=== PATIENT | male | born 1985 | race Caucasian/White ===

== ENCOUNTER 2018-06-20 08:11 | Emergency (ER) | payer OTHER, SELFPAY ==
[2018-06-20 08:11] VITALS: BP 174/105; PULSE 106; RESP 20; TEMP 36.8; O2SAT 99
--- NOTE | 2018-06-20 08:35 | DI.RAD.S_ITS ---
PROCEDURE: XR FOOT RT MIN 3V INDICATIONS: felt pop in foot, pain with weight bearing TECHNIQUE: 3 views of the foot were acquired. COMPARISON: None. FINDINGS: Bones: No fractures or dislocations. No suspicious bony lesions. Soft tissues: No tibiotalar joint effusion. Achilles tendon appears normal. IMPRESSION: No trauma found. Please note that plain film imaging generally would not detect ligamentous injury. MR scanning would provide accurate assessment for such injury. Dictated by: Jovanni Blue M.D. on 06/20/2018 at 8:57 Approved by: Jovanni Blue M.D. on 06/20/2018 at 9:03
--- NOTE | 2018-06-20 09:25 | ED.LOWEXIN ---
HPI - Extremity Injury (Lower) General Chief Complaint: Extremity Injury, Lower Stated Complaint: RT FOOT PAIN Time Seen by Provider: 06/20/18 08:17 Source: patient Mode of arrival: ambulatory Limitations: no limitations History of Present Illness HPI Narrative: Patient presents with chief complaint of right foot pain after walking up some stairs when he felt and heard a pop. He denies any numbness, tingling weakness. He denies any significant swelling. He is able to ambulate but states it hurts worse when he walks Related Data Allergies Allergy/AdvReac Type Severity Reaction Status Date / Time No Known Drug Allergies Allergy Verified 06/20/18 08:40 Review of Systems Review of Systems All systems reviewed & are unremarkable except as noted in HPI and below Constitutional Denies chills, Denies fever(s), Denies lethargy and Denies weakness Eyes Denies change in vision, Denies eye discharge, Denies irritation and Denies loss of vision ENT Ears, Nose, Mouth, and Throat: Denies change in voice, Denies neck pain and Denies sore throat Cardiovascular Denies chest pain, Denies irregular heart rhythm, Denies lightheadedness, Denies palpitations, Denies dyspnea, Denies dyspnea on exertion and Denies orthopnea Respiratory Denies cough, Denies dyspnea, Denies dyspnea on exertion and Denies wheezing Gastrointestinal Gastrointestinal: Denies abdominal pain, Denies change in bowel habits, Denies diarrhea, Denies nausea and Denies vomiting Genitourinary Denies hematuria, Denies flank pain, Denies urinary incontinence and Denies urinary urgency Musculoskeletal Reports joint swelling, Reports limited range of motion and Denies neck pain Integumentary/Breasts Denies pruritus, Denies erythema, Denies rash and Denies wounds Neurologic Denies confusion, Denies loss of vision and Denies weakness Psychiatric Denies anxiety, Denies confusion, Denies depression, Denies homicidal ideation and Denies suicidal ideation Endocrine Denies palpitations Hematologic/Lymphatic Denies easy bruising Allergic/Immunologic Denies wheezing PFSH Social History Smoking Status: Never smoker Exam Narrative Exam Narrative: GEN: AOx3 and in mild distress EYES: Pupils are equal, round, and reactive to light and accommodation. Extraoccular muscles are intact bilaterally. There is no subconjunctival hemorrhage or exudate. CHEST: Lungs are clear to auscultation bilaterally and free of wheezes, rales, or rhonchi. Heart rate is regular rhythm, there are no murmurs, clicks, rubs, or gallops. There is no chest wall tenderness. ABD: Abdomen is soft and nontender. There is no guarding or rebound. Bowel sounds are normal in all 4 quadrants. There is no mass or organomegaly. EXT: F mild pain to palpation on dorsum of right foot. No obvious deformity, swelling. Isolated, neurovascularly intact injury SKIN: Warm, pink, and dry. No erythema or rash Initial Vital Signs Initial Vital Signs: Vital Signs Temperature 98.2 F 06/20/18 08:11 Pulse Rate 106 H 06/20/18 08:11 Respiratory Rate 20 06/20/18 08:11 Blood Pressure 174/105 H 06/20/18 08:11 Pulse Oximetry 99 06/20/18 08:11 Course Orders Ordered: ED Orders 06/20/18 08:35 XR foot RT min 3V Stat Vital Signs - 8 hr 06/20/18 10:13 Pulse Rate 110 H Respiratory Rate 20 Blood Pressure 156/100 H Pulse Oximetry 98 MDM - Extremity Injury (Lower) Imaging Data Foot Xray: Radiologist's impression: PROCEDURE: XR FOOT RT MIN 3V INDICATIONS: felt pop in foot, pain with weight bearing TECHNIQUE: 3 views of the foot were acquired. COMPARISON: None. FINDINGS: Bones: No fractures or dislocations. No suspicious bony lesions. Soft tissues: No tibiotalar joint effusion. Achilles tendon appears normal. IMPRESSION: No trauma found. Please note that plain film imaging generally would not detect ligamentous injury. MR scanning would provide accurate assessment for such injury. Dictated by: Jovanni Blue M.D. on 06/20/2018 at 8:57 Approved by: Jovanni Blue M.D. on 06/20/2018 at 9:03 Discharge Plan Departure Patient Disposition: Home Clinical Impression: Right foot sprain Discharge Date/Time: 06/20/18 10:12 Interventions: ED Discharge Assessment Last Done: 06/20/18 10:13 Instructions: DI for Foot Sprain Activity Restrictions/Additional Instructions: *You have been diagnosed with [acute right foot sprain ] *What to do: *Take medications as directed: [id number] Tylenol and Motrin *Follow up with your primary care provider in 2-3 days, call for an appointment. Let them know you were seen in the Emergency Department and that we ask that you be seen in follow up *Return to ER if you should have any new, worsening or concerning symptoms
[2018-06-20 10:13] VITALS: BP 156/100; PULSE 110; RESP 20; O2SAT 98
== END 2018-06-20 10:12 | disposition home or self-care (01) ==
PROVIDERS: Emergency Provider Emergency Medicine
DX: S93.601A Unspecified sprain of right foot, initial encounter (principal); Y93.01 Activity, walking, marching and hiking
CPT/HCPCS: 73630; 99282; 99283

== ENCOUNTER 2018-07-20 11:52 | Emergency (ER) | payer OTHER, SELFPAY ==
[2018-07-20 12:04] VITALS: BP 160/101; PULSE 113; RESP 24; TEMP 36.6; O2SAT 99; BMI 34.2
--- NOTE | 2018-07-20 12:18 | ED.ALCOHOL ---
HPI - Alcohol General Chief Complaint: Toxicology Problem Stated Complaint: GOUT RT FOOT,BRUISING EVERYWHERE Time Seen by Provider: 07/20/18 12:18 Source: patient Mode of arrival: ambulatory Limitations: no limitations History of Present Illness HPI narrative: this a 32-year-old male comes to the emergency department complaint of bruising everywhere. Patient states that he has been drinking excessively. He has been drinking about a L of hard alcohol daily. He states that he stops drinking Sunday morning and Sunday night had what was described to him as a seizure. He was found on the floor shaking and banging into things. He states that afterwards the people with him said he was very aggressive. This was on [place]. He [place] Ts were present he was not seen at this hospital at that time. He has continued to notice more and more bruising on his, on his arm on his chest and back and lower extremities. He noticed that his right great toenail as seems to be raised up pushed off to the side. He does have a history of elevated liver enzymes and was told to follow up but never did. This was when he was living in [place] at least several months to a year ago. He states he also has a history of high blood pressure but does not take any medication for it. He has had withdrawal symptoms in the past and college around the age of 27 but has never had prior seizures with alcohol withdrawal. He states he occasionally uses marijuana but denies other illicit. Chronic alcohol use: Yes Recent trauma: Yes Related Data Previous Rx's Medication Instructions Recorded chlordiazepoxide HCl 20 mg PO Q8H PRN #12 cap 07/20/18 Allergies Allergy/AdvReac Type Severity Reaction Status Date / Time No Known Drug Allergies Allergy Verified 07/20/18 12:13 Review of Systems Review of Systems All systems reviewed & are unremarkable except as noted in HPI and below PFSH Medical History HTN (hypertension) (Acute) Social History Smoking Status: Never smoker Exam Initial Vital Signs Initial Vital Signs: Vital Signs Temperature 97.8 F 07/20/18 12:04 Pulse Rate 113 H 07/20/18 12:04 Respiratory Rate 24 07/20/18 12:04 Blood Pressure 160/101 H 07/20/18 12:04 Pulse Oximetry 99 07/20/18 12:04 Const General: cooperative and well developed Nutritional Appearance: well nourished and obese Orientation: alert, awake, oriented x3 and not confused [facility] Head: normocephalic, abrasion, No Coy's sign and contusion ( Patient has bruising over the right forehead brow with a small abrasion. patient also has a small bruise on the inner orbit of the right eye) Ears: hearing grossly normal bilaterally, external ears normal and TM's normal bilaterally Nose: external nose normal, nares normal and nasal mucous membranes and turbinates normal Face and sinus: normal facial exam ( Except as above), sinuses tender and face symmetric Mouth: oral mucosae normal, lip normal and tongue normal Teeth and gingiva: dentition normal Throat: posterior oropharynx normal, tonsils normal and uvula midline Eyes General: appearance normal, both eyes and all related structures Eyelids: eyelids normal Conjunctivae: conjunctivae normal Sclera: sclerae normal Pupils: PERRL EOM: EOM intact bilaterally Neck Neck: normal visual inspection, trachea midline, No lymphadenopathy, No midline deformity, No tender and No JVD Lymphatic: No lymphedema Chest Chest: normal inspection of the chest Resp Effort & Inspection: normal respiratory effort, able to speak in complete sentences, no respiratory distress and no use of accessory muscles Auscultation: clear to auscultation bilaterally, no rales, no rhonchi and no wheezes Cardio Rate: regular rate Rhythm: regular rhythm Heart Sounds: no click, no gallops, no murmurs and no rubs Pulses: normal peripheral pulses GI Inspection: abdominal wall ecchymosis ( patient has a a 4 cm hematoma / ecchymosis of the right upper quadrant.) and non-distended Palpation: soft, no hepatosplenomegaly, No guarding, No pulsatile mass and No tender Auscultation: normal bowel sounds General: bimanual renal exam normal bilaterally and No CVA tenderness Back/Spine/Pelvis Back: No CVA tenderness Cervical Spine: cervical ROM normal and No pain with cervical ROM Thoracic/Lumbar Spine: thoracic and lumbar spine normal to inspection Skin General: no rashes or lesions noted, No jaundice and No petechiae Other: Patient has extensive bruising Neuro General: alert, oriented x3, gait normal and no focal motor deficits Cranial Nerves: CN's II-XI intact bilaterally and PERRL Cognition: normal cognition Speech: speech normal Motor: muscle tone normal throughout, strength 5/5 throughout and tremor ( mild generalized tremor) Sensory Exam: no sensory deficits noted Extrem General: full ROM, no clubbing, cyanosis or edema, no pedal edema and no calf tenderness Right upper extremity: full ROM and shoulder/upper arm Details: abnormal to inspection ( Patient has bruising of the right upper arm) Details: no obvious dislocation, no A-C step-off, no clavicle deformity and no loss of deltoid contour and normal ROM; no tenderness ( mild tenderness) and no swelling Right lower extremity: full ROM, normal capillary refill, ankle ( Right ankle has extensive bruising on the lateral side no bony tenderness.) and foot ( patient has bruising of the right great toe at the nail slightly lifted. Patient also has missing toenails hand or bruising around all other 5 toes in nails.); no edema Left lower extremity: full ROM, normal capillary refill and foot ( Patient has bruising and some toe some loss of toenails on 2 toes.); no edema Procedures Nerve Block Nerve Block 1: Time out performed: Yes Local Anesthetic: lidocaine 1% Amount of anesthesia used (mL): 8 Side: right Nerve Blocks: other (great toe, digital block) [facility] [place] Procedure Name of Procedure: Side (if applicable): right Time out performed: Yes Technique/Description of procedure performed: PROCEDURE: toenail avulsion The area surrounding the skin lesion was prepared and draped in the usual sterile manner. The patient is placed in the supine position. The toe was prepped with povidone-iodine solution. A standard digital block was performed, a [25 guage] needle was inserted. 6] mL of lidocaine without epinephrine and marcaine were injected. A sterile tourniquet was applied for the shortest time possible. Hemostats was slid under the cuticle to separate the nail plate from the overlying proximal nail fold. Patient did have a subungual hematoma which is drained when this occurred. The lateral 20-30% of the nail plate was cut free and gently pulled free with a hemostat. A non-stick dressing was applied followed by a bulky gauze dressing. Followup: The patient tolerated the procedure well without complications. Standard post-procedure care is explained and return precautions are given. Patient tolerated procedure: Well Complications: none Course Orders Ordered: Discontinued Medications Sodium Chloride (Normal Saline 0.9%) 1,000 mls @ 1,000 mls/hr IV BOLUS ONE Stop: 07/20/18 13:18 Last Infusion: 07/20/18 13:52 Dose: 0 mls/hr Admin: 07/20/18 12:35 Dose: 1,000 mls/hr Lorazepam (Ativan) 1 mg IV NOW ONE Stop: 07/20/18 12:31 Last Admin: 07/20/18 12:53 Dose: 1 mg Lorazepam (Ativan) 1 mg IV NOW ONE Stop: 07/20/18 13:51 Last Admin: 07/20/18 13:52 Dose: 1 mg Vital Signs - 8 hr 07/20/18 12:04 07/20/18 12:30 07/20/18 13:32 Temperature 97.8 F Pulse Rate 113 H 99 H Respiratory Rate 24 18 Blood Pressure 160/101 H Blood Pressure [Right Arm] 151/94 H 132/98 H Pulse Oximetry 99 98 07/20/18 14:30 07/20/18 16:05 Temperature 98.2 F Pulse Rate 108 H 107 H Respiratory Rate 15 16 Blood Pressure 146/84 H Blood Pressure [Right Arm] 139/83 Pulse Oximetry 97 MDM - Alcohol Lab Data Attestation: I reviewed the patient's lab results. Result diagrams: 07/20/18 12:10 07/20/18 12:10 Labs: Lab Results 07/20/18 07/20/18 07/20/18 Range/Units 12:10 12:10 12:10 WBC 6.0 (4.5-11.0) X10^3/uL RBC 4.11 L (4.5-5.9) X10^6/uL Hgb 13.8 (13.5-17.5) g/dL Hct 39.6 L (41-53) % MCV 96.3 (80-100) fL MCH 33.6 (26-34) PG MCHC 34.9 (30-36) % RDW 13.9 (11.6-14.8) % Plt Count 67 L (150-400) X10^3/uL Neut % (Auto) 70.4 (50-75) % Lymph % (Auto) 15.8 L (25-40) % [place] % (Auto) 11.8 (3-14) % Eos % (Auto) 1.2 L (2-4) % Baso % (Auto) 0.8 (0-2) % Neut # (Auto) 4200 (9011-4052) /uL PT 16.0 H (10.1-12.7) SECONDS INR 1.5 H (0.9-1.3) APTT 36 (26.4-36.2) SECONDS Sodium 136 L (137-145) mmol/L Potassium 3.9 (3.4-5.1) mmol/L Chloride 97 L (98-107) mmol/L Carbon Dioxide 25 (22-32) mmol/L BUN 9 (9-20) mg/dL Creatinine 0.60 L (0.66-1.25) mg/dL Estimated GFR > 60.0 (>60) mL/min BUN/Creatinine Ratio 15.0 (6-22) Glucose 92 (70-100) mg/dL Calcium 9.7 (8.4-10.2) mg/dL Total Bilirubin 8.6 H (0.2-1.3) mg/dL AST 287 H (17-59) IU/L ALT 98 H (21-72) IU/L Alkaline Phosphatase 85 (38-126) U/L Total Protein 8.8 H (6.3-8.2) g/dL Albumin 4.8 (3.5-5.0) g/dL Globulin 4.0 (1.7-4.1) g/dL Albumin/Globulin Ratio 1.2 (1.0-2.8) Imaging Data CT scan - head: Radiologist's impression: [place] [id number] CT Scan Report Signed Patient: JOSH CONRAD GMR#: [id number] : 1985Acct:[id number] Age/Sex: 32 / MDate of Service: 07/20/18 Loc: ED Accession Number: [id number] Procedure: CT head/brain wo con Ordering Provider: Eli Laguna D.O. PROCEDURE: CT HEAD/BRAIN WO CON INDICATIONS: head injury weds/seizure, alcohol withdrawl, bruising TECHNIQUE: Noncontrast 4.5 mm thick angled axial sections acquired from the foramen magnum to the vertex, with coronal and sagittal reformats. For radiation dose reduction, the following was used: automated exposure control, adjustment of mA and/or kV according to patient size. COMPARISON: None. FINDINGS: Image quality: Excellent. CSF spaces: Basal cisterns are patent. No extra-axial fluid collections. Ventricles are normal in size and shape. Brain: No midline shift. No intracranial masses or hemorrhage. Key-white matter interface is normal. Skull and face: Calvarium and visualized facial bones are intact, without suspicious lesions. Sinuses: Visualized sinuses and mastoids are clear. IMPRESSION: No acute intracranial abnormalities. Dictated by: Nuno Garrett M.D. on 07/20/2018 at 13:57 Approved by: Nuno Garrett M.D. on 07/20/2018 at 13:59 Right foot: Radiologist's impression: XRay Report Signed Patient: JOSH CONRAD GMR#: [id number] : 1985Acct:[id number] Age/Sex: 32 / MDate of Service: 07/20/18 Loc: ED Accession Number: [id number] Procedure: XR foot RT 2V Ordering Provider: Eli Laguna D.O. PROCEDURE: XR FOOT RT 2V INDICATIONS: bruising, great toe injury, prior seizure TECHNIQUE: 2 views of the foot were acquired. COMPARISON: [facility], , XR FOOT RT MIN 3V, 06/20/2018, 8:13. FINDINGS: Bones: No fractures or dislocations. No suspicious bony lesions. Soft tissues: No tibiotalar joint effusion. Achilles tendon appears normal. IMPRESSION: No fracture or dislocation. If clinical symptoms persist or clinical suspicion for pathology is high, a repeat examination in 7-10 days, or advanced imaging such as CT or MRI is suggested for further evaluation. Dictated by: Nuno Garrett M.D. on 07/20/2018 at 14:26 Approved by: Nuno Garrett M.D. on 07/20/2018 at 14:27 MDM Narrative Medical decision making narrative: patient's liver enzymes and platelets are normal and this was discussed with patient. Because of the extensive bruising and history of drinking head CT was ordered which was negative. Patient did not have any other issues with movement so no other imaging was ordered for any areas of bruising except for his foot which did have a nail avulsion. There is no fracture in the foot. His right great toenail was removed patient tolerated the procedure well. He describes his seizure on Sunday but has not had any further signs of DTs since then and felt like he is actually improving in his withdrawal symptoms. He was given Librium had advised not to drive. The patient is returning to [place] at the end of the week of his as he will get follow-up there regarding his alcohol and liver disease as well as further follow-up for his toe. Discharge Plan Departure Patient Disposition: Home Clinical Impression: Alcohol withdrawal, Avulsion of nail Discharge Date/Time: 07/20/18 16:24 Interventions: ED Discharge Assessment Last Done: 07/20/18 16:05 Instructions: DI for Delirium Tremens, DI for Nail Avulsion Injury Activity Restrictions/Additional Instructions: Follow-up in the next week for recheck. I do recommend you stop drinking alcohol, year platelets are low which is increasing or bruising and is a sign that you have severe liver injury. Your liver enzymes, INR and platelets all have lab abnormalities. Return if you're having worsening shaking, any changes in mental status, confusion, any seizure-like activity, or new or worsening symptoms. Wound Care: Keep wound(s) clean and dry. Wash daily with soap and water only. Do not use over the counter products (alcohol or peroxide)on the wounds unless instructed by a physician. You may put triple antibiotic ointment on the affected area. If wound condition worsens (increased/expanding redness, developing fluid blisters, or worsening pain), either contact your doctor for an urgent re-assessment , or return to the Emergency Department. Return to the Emergency Department for any new or worsening symptoms. Return to the ED, urgent care, or vist a primary care doctor for removal or suture or sriram Return if fever greater than 100.4 Fahrenheit, increased swelling, increasing pain or worsening symptoms such as increased discharge or spreading redness. Use warm compresses 3 times daily for 20 minutes to the affected area. If there is packing in place do not pull it out, if it falls out do not try to replace it. Prescriptions: New chlordiazepoxide HCl 10 mg capsule 20 mg PO Q8H PRN (Reason: Alcohol withdrawal) Qty: 12 RF: 0
[2018-07-20 12:30] VITALS: BP 151/94
--- NOTE | 2018-07-20 12:30 | DI.CT.S_ITS ---
PROCEDURE: CT HEAD/BRAIN WO CON INDICATIONS: head injury weds/seizure, alcohol withdrawl, bruising TECHNIQUE: Noncontrast 4.5 mm thick angled axial sections acquired from the foramen magnum to the vertex, with coronal and sagittal reformats. For radiation dose reduction, the following was used: automated exposure control, adjustment of mA and/or kV according to patient size. COMPARISON: None. FINDINGS: Image quality: Excellent. CSF spaces: Basal cisterns are patent. No extra-axial fluid collections. Ventricles are normal in size and shape. Brain: No midline shift. No intracranial masses or hemorrhage. Key-white matter interface is normal. Skull and face: Calvarium and visualized facial bones are intact, without suspicious lesions. Sinuses: Visualized sinuses and mastoids are clear. IMPRESSION: No acute intracranial abnormalities. Dictated by: Nuno Garrett M.D. on 07/20/2018 at 13:57 Approved by: Nuno Garrett M.D. on 07/20/2018 at 13:59
--- NOTE | 2018-07-20 12:30 | DI.RAD.S_ITS ---
PROCEDURE: XR FOOT RT 2V INDICATIONS: bruising, great toe injury, prior seizure TECHNIQUE: 2 views of the foot were acquired. COMPARISON: [facility], CR, XR FOOT RT MIN 3V, 06/20/2018, 8:13. FINDINGS: Bones: No fractures or dislocations. No suspicious bony lesions. Soft tissues: No tibiotalar joint effusion. Achilles tendon appears normal. IMPRESSION: No fracture or dislocation. If clinical symptoms persist or clinical suspicion for pathology is high, a repeat examination in 7-10 days, or advanced imaging such as CT or MRI is suggested for further evaluation. Dictated by: Nuno Garrett M.D. on 07/20/2018 at 14:26 Approved by: Nuno Garrett M.D. on 07/20/2018 at 14:27
[2018-07-20 12:33] LABS: INR 1.5 (0.9-1.3)
[2018-07-20 12:34] LABS: Add Manual Diff / Slide Review NO; Basophils Percent Auto 0.8 % (0-2); Eosinophils Percent Auto 1.2 % (2-4); Hematocrit 39.6 % (41-53); Hemoglobin 13.8 g/dL (13.5-17.5); Lymphocytes Percent Auto 15.8 % (25-40); Mean Corpuscular HGB Conc 34.9 % (30-36); Mean Corpuscular Hemoglobin 33.6 PG (26-34); Mean Corpuscular Volume 96.3 fL (80-100); Monocytes Percent Auto 11.8 % (3-14); Neutrophils Absolute Auto 4200 /uL (3000-5900); Neutrophils Percent Auto 70.4 % (50-75); Platelet Count 67 X10^3/uL (150-400); Red Blood Cell Count 4.11 X10^6/uL (4.5-5.9); Red Cell Distribution Width 13.9 % (11.6-14.8)
[2018-07-20 12:35] LABS: Alanine Aminotransferase 98 IU/L (21-72); Albumin 4.8 g/dL (3.5-5.0); Albumin Globulin Ratio 1.2 (1.0-2.8); Alkaline Phosphatase 85 U/L (38-126); Aspartate Aminotransferase 287 IU/L (17-59); Blood Urea Nitrogen 9 mg/dL (9-20); Calcium 9.7 mg/dL (8.4-10.2); Carbon Dioxide 25 mmol/L (22-32); Chloride 97 mmol/L (98-107); Estimated Glomerular Filt Rate > 60.0 mL/min (>60); Glucose 92 mg/dL (70-100); HEMOLYSIS < 15 (0-50); PTT Partial Thromboplastin Tim 36 SECONDS (26.4-36.2); Potassium 3.9 mmol/L (3.4-5.1); Sodium 136 mmol/L (137-145); Total Protein 8.8 g/dL (6.3-8.2)
[2018-07-20] MEDS: SODIUM CHLORIDE 0.9% 1,000 ML 1000 ML IV (12:35)
[2018-07-20 12:37] LABS: Bilirubin Total 8.6 mg/dL (0.2-1.3)
[2018-07-20] MEDS: LORazepam 2 MG/ML SYRINGE 1 MG IV ×2 (12:53→13:52)
[2018-07-20 13:32] VITALS: BP 132/98; PULSE 99; RESP 18; O2SAT 98
[2018-07-20 14:30] VITALS: BP 139/83; PULSE 108; RESP 15
[2018-07-20 16:05] VITALS: BP 146/84; PULSE 107; RESP 16; TEMP 36.8; O2SAT 97
== END 2018-07-20 16:24 | disposition home or self-care (01) ==
PROVIDERS: Emergency Provider Emergency Medicine
DX: S91.209A Unspecified open wound of unspecified toe(s) with damage to nail, initial encounter (principal); F10.239 Alcohol dependence with withdrawal, unspecified; W22.8XXA Striking against or struck by other objects, initial encounter
CPT/HCPCS: 36591; 64450; 70450; 73620; 80053; 85025; 85610; 85730; 93005; 96361; 96374; 96376; 99283; 99285; J2060